=== PATIENT | male | born 1960 | race Caucasian/White ===

== ENCOUNTER 2017-10-22 19:52 | Emergency (ER) | payer OTHER ==
[~2017-10-22] VITALS: Ht 177.8 cm; Wt 89.2 kg
[2017-10-22] MEDS ORDERED: cloNIDine 0.1 mg tablet PO ONE ×2 (20:45)
[2017-10-22] MEDS ORDERED: LORazepam 1 MG tablet PO ONE (20:45)
[2017-10-22 20:54] LABS: BASOPHILS # (AUTO) 0.1 X10'3 (0-0.2); BASOPHILS % (AUTO) 0.7 % (0-1); EOSINOPHILS # (AUTO) 0.1 X10'3 (0-0.9); EOSINOPHILS % (AUTO) 1.2 % (0-6); HEMATOCRIT 44.4 % (42.0-52.0); HEMOGLOBIN 15.6 g/dl (14.0-17.9); LYMPHOCYTES % (AUTO) 21.4 % (21-51); MEAN CORPUSCULAR VOLUME 85.8 FL (78-98); MONOCYTES # (AUTO) 0.9 X10'3 (0-0.9); NEUTROPHILS # (AUTO) 6.4 X10'3 (1.8-7.7); NEUTROPHILS % (AUTO) 67.7 % (42-75); PLATELET COUNT 419 X10'3 (140-440); RED BLOOD COUNT 5.18 X10'6 (4.70-6.10); RED CELL DISTRIBUTION WIDTH 14.2 % (11.5-14.5); WHITE BLOOD COUNT 9.4 X10'3 (4.5-11.0)
[2017-10-22 20:56] VITALS: BP 208/164
[2017-10-22 21:08] LABS: INR 0.9 INR; PARTIAL THROMBOPLASTIN TIME 25 SECONDS (22-32); PROTHROMBIN TIME 9.5 SECONDS (9.0-12.0)
[2017-10-22 21:24] LABS: ALANINE AMINOTRANSFERASE 29 U/L (12-78); ALBUMIN 3.9 G/DL (3.4-5.0); ALKALINE PHOSPHATASE 105 IU/L (46-116); ANION GAP 11 (8-16); ASPARTATE AMINO TRANSFERASE 17 U/L (10-37); BILIRUBIN,TOTAL 0.2 MG/DL (0.1-1.0); BLOOD UREA NITROGEN 13 MG/DL (7-18); BUN/CREATININE RATIO 10.8 (5.4-32.0); CALCIUM 9.1 MG/DL (8.5-10.1); CHLORIDE 102 MMOL/L (99-107); GLUCOSE 122 MG/DL (70-104); POTASSIUM 3.9 MMOL/L (3.5-5.1); SODIUM 141 MMOL/L (135-145); TOTAL CARBON DIOXIDE 27.6 MMOL/L (24-32); TOTAL PROTEIN 7.9 G/DL (6.4-8.2); eGFR 63 ML/MIN
== END 2017-10-22 22:17 | disposition left against medical advice (07) ==
LOC: ER 19:53
DX: I10 Essential (primary) hypertension (principal); F17.200 Nicotine dependence, unspecified, uncomplicated; F12.10 Cannabis abuse, uncomplicated
CPT/HCPCS: 36415; 71045; 80053; 83880; 84484; 85025; 85610; 85730; 99285

== ENCOUNTER 2018-10-04 09:14 | Emergency (ER) | payer OTHER ==
[~2018-10-04] VITALS: Ht 180.3 cm; Wt 81.8 kg
[2018-10-04 09:59] LABS: BASOPHILS % (AUTO) 0.2 % (0-1); EOSINOPHILS # (AUTO) 0.2 X10'3 (0-0.9); EOSINOPHILS % (AUTO) 2.2 % (0-6); HEMOGLOBIN 11.8 g/dl (14.0-17.9); LYMPHOCYTES # (AUTO) 1.3 X10'3 (1.1-4.8); LYMPHOCYTES % (AUTO) 13.3 % (21-51); MEAN CORPUSCULAR HEMOGLOBIN 21.5 PG (27.0-31.0); MEAN CORPUSCULAR VOLUME 67.3 FL (78-98); MEAN PLATELET VOLUME 7.1 FL (7.4-10.4); MONOCYTES # (AUTO) 0.8 X10'3 (0-0.9); MONOCYTES % (AUTO) 8.4 % (2-12); NEUTROPHILS # (AUTO) 7.6 X10'3 (1.8-7.7); NEUTROPHILS % (AUTO) 75.9 % (42-75); PLATELET COUNT 499 X10'3 (140-440); RED BLOOD COUNT 5.49 X10'6 (4.70-6.10); RED CELL DISTRIBUTION WIDTH 22.5 % (11.5-14.5)
[2018-10-04 10:08] LABS: ALANINE AMINOTRANSFERASE 25 U/L (12-78); ALBUMIN 3.8 G/DL (3.4-5.0); ALBUMIN/GLOBULIN RATIO 0.9 (1.1-1.5); ALKALINE PHOSPHATASE 105 IU/L (46-116); ANION GAP 13 (8-16); ASPARTATE AMINO TRANSFERASE 17 U/L (10-37); BILIRUBIN,TOTAL 0.2 MG/DL (0.1-1.0); BLOOD UREA NITROGEN 14 MG/DL (7-18); CALCIUM 9.5 MG/DL (8.5-10.1); CHLORIDE 97 MMOL/L (99-107); CREATININE 1.56 MG/DL (0.60-1.10); GLUCOSE 114 MG/DL (70-104); POTASSIUM 3.1 MMOL/L (3.5-5.1); SODIUM 137 MMOL/L (135-145); TOTAL CARBON DIOXIDE 27.2 MMOL/L (24-32); eGFR 46 ML/MIN
[2018-10-04 10:12] LABS: TROPONIN I 0.05 NG/ML (0.0-0.05)
[2018-10-04] MEDS ORDERED: NORMAL SALINE IV PRN (10:25)
[2018-10-04] MEDS ORDERED: LABETALOL IV PRN (10:25)
[2018-10-04 10:39] LABS: ANISOCYTOSIS 3+; ELLIPTOCYTES 1+; HYPOCHROMASIA 1+; MICROCYTOSIS 2+; PLATELET ESTIMATE NORMAL
[2018-10-04 10:40] LABS: POLYCHROMASIA FEW; SCHISTOCYTES FEW
[2018-10-04 10:54] VITALS: BP 212/141
[2018-10-04 11:01] LABS: PARTIAL THROMBOPLASTIN TIME 28 SECONDS (22-32); PROTHROMBIN TIME 9.9 SECONDS (9.0-12.0)
== END 2018-10-04 20:43 | disposition short-term general hospital (02) ==
LOC: ER 09:15
DX: I62.9 Nontraumatic intracranial hemorrhage, unspecified (principal); I16.9 Hypertensive crisis, unspecified; R20.0 Anesthesia of skin; F17.200 Nicotine dependence, unspecified, uncomplicated; F12.90 Cannabis use, unspecified, uncomplicated
CPT/HCPCS: 36415; 70450; 71045; 80053; 84484; 85025; 85610; 85730; 93005; 96365; 99285; J7030; 99284; J3490

== ENCOUNTER 2020-09-15 19:58 | Emergency (ER) | payer MEDICAID ==
[~2020-09-15] VITALS: Ht 180.3 cm; Wt 84.5 kg
[2020-09-15 20:39] LABS: BASOPHILS # (AUTO) 0.1 X10'3 (0-0.2); BASOPHILS % (AUTO) 0.6 % (0-1); EOSINOPHILS % (AUTO) 0.2 % (0-6); HEMATOCRIT 52.2 % (42.0-52.0); HEMOGLOBIN 17.7 g/dl (14.0-17.9); LYMPHOCYTES % (AUTO) 13.7 % (21-51); MEAN CORPUSCULAR HEMOGLOBIN 30.7 PG (27.0-31.0); MEAN CORPUSCULAR HGB CONC 33.9 g/dL (33.0-36.5); MEAN CORPUSCULAR VOLUME 90.6 FL (78-98); MEAN PLATELET VOLUME 7.3 FL (7.4-10.4); MONOCYTES # (AUTO) 0.9 X10'3 (0-0.9); MONOCYTES % (AUTO) 6.1 % (2-12); NEUTROPHILS # (AUTO) 11.7 X10'3 (1.8-7.7); NEUTROPHILS % (AUTO) 79.4 % (42-75); PLATELET COUNT 467 X10'3 (140-440); RED BLOOD COUNT 5.76 X10'6 (4.70-6.10); RED CELL DISTRIBUTION WIDTH 13.6 % (11.5-14.5); WHITE BLOOD COUNT 14.7 X10'3 (4.5-11.0)
[2020-09-15] MEDS ORDERED: proCHLORperazine 10 MG/2 ml inj IV ONE (20:50)
[2020-09-15] MEDS ORDERED: normal saline 1000ML IV soln IVB ONE (20:50)
[2020-09-15 20:51] LABS: ALANINE AMINOTRANSFERASE 28 U/L (12-78); ALBUMIN 4.1 G/DL (3.4-5.0); ALKALINE PHOSPHATASE 114 IU/L (46-116); ANION GAP 12 (8-16); ASPARTATE AMINO TRANSFERASE 14 U/L (10-37); BILIRUBIN,TOTAL 0.7 MG/DL (0.1-1.0); BLOOD UREA NITROGEN 25 MG/DL (7-18); BUN/CREATININE RATIO 18.4 (5.4-32.0); CALCIUM 9.6 MG/DL (8.5-10.1); CHLORIDE 99 MMOL/L (99-107); CREATININE 1.36 MG/DL (0.60-1.10); GLUCOSE 139 MG/DL (70-104); LIPASE 59 U/L (73-393); SODIUM 137 MMOL/L (135-145); TOTAL CARBON DIOXIDE 26.5 MMOL/L (24-32); TOTAL PROTEIN 8.3 G/DL (6.4-8.2); eGFR 54 ML/MIN
--- NOTE | 2020-09-15 20:55 | NUR ---
CRISPIN LOPEZ AT BEDSIDE.
[2020-09-15 21:11] LABS: CLARITY,URINE CLEAR (Clear); COLOR,URINE YELLOW (Yellow); GLUCOSE, URINE NEGATIVE (Neg); KETONES,URINE 15 mg/dl (Neg); LEUKOCYTE ESTERASE ,URINE NEGATIVE (Neg); NITRITES, URINE NEGATIVE (Neg); OCCULT BLOOD,URINE TRACE-INTACT (Neg); PROTEIN,URINE NEGATIVE (Neg); UROBILINOGEN,URINE 0.2 E.U/dL (0.2-1.0)
[2020-09-15 21:15] LABS: UA COLLECTION TYPE CLN CATCH MIDSTREAM
[2020-09-15 21:17] LABS: BACTERIA,URINE FEW /HPF (Neg); RBC,URINE 0-2 /HPF (0-2); SQUAMOUS EPITHELIAL CELL,UR FEW /LPF (FEW); WBC,URINE NONE SEEN /HPF (0-4)
--- NOTE | 2020-09-15 22:17 | NUR ---
PO CHALLENGE COMPLETED SUCCESFULLY. PATIENT TOLERATED 2 CUPS OF WATER, CLEAR LIQUID AND APPLE SAUCE. PATIENT DENIES NAUSEA AND STATES HE IS HUNGRY.
[2020-09-15] MEDS ORDERED: PROC25SU31 RC (22:42)
[2020-09-15 22:45] VITALS: BP 144/86
== END 2020-09-15 23:06 | disposition home or self-care (01) ==
LOC: ER 19:58
DX: R11.10 Vomiting, unspecified (principal); I10 Essential (primary) hypertension; F12.90 Cannabis use, unspecified, uncomplicated; Z86.73 Personal history of transient ischemic attack (TIA), and cerebral infarction without residual deficits; Z79.899 Other long term (current) drug therapy
CPT/HCPCS: 36415; 80053; 81001; 83690; 85025; 93005; 96361; 96374; 99284; J0780; J7030

== ENCOUNTER 2021-12-19 09:02 | Inpatient (IN) | payer MEDICAID ==
[~2021-12-19] VITALS: Ht 180.3 cm; Wt 91.0 kg
[2021-12-19 09:59] LABS: APTT 27 SECONDS (22-32)
[2021-12-19 10:02] LABS: ALANINE AMINOTRANSFERASE 36 U/L (12-78); ALBUMIN 3.8 G/DL (3.4-5.0); ALKALINE PHOSPHATASE 91 IU/L (46-116); ANION GAP 10 (8-16); ASPARTATE AMINO TRANSFERASE 18 U/L (10-37); BILIRUBIN,TOTAL 0.3 MG/DL (0.1-1.0); BLOOD UREA NITROGEN 20 MG/DL (7-18); BUN/CREATININE RATIO 12.7 (5.4-32.0); CALCIUM 9.4 MG/DL (8.5-10.1); CHLORIDE 103 MMOL/L (99-107); CREATININE 1.58 MG/DL (0.60-1.10); GLUCOSE 138 MG/DL (70-104); POTASSIUM 4.2 MMOL/L (3.5-5.1); SODIUM 140 MMOL/L (135-145); TOTAL CARBON DIOXIDE 26.9 MMOL/L (24-32); TOTAL PROTEIN 7.7 G/DL (6.4-8.2); eGFR 45 ML/MIN
[2021-12-19 10:03] LABS: BASOPHILS # (AUTO) 0.1 X10'3 (0-0.2); EOSINOPHILS # (AUTO) 0.1 X10'3 (0-0.9); EOSINOPHILS % (AUTO) 1.7 % (0-6); HEMATOCRIT 42.1 % (42.0-52.0); LYMPHOCYTES # (AUTO) 1.6 X10'3 (1.1-4.8); LYMPHOCYTES % (AUTO) 20.7 % (21-51); MEAN CORPUSCULAR HEMOGLOBIN 28.5 PG (27.0-31.0); MEAN CORPUSCULAR HGB CONC 33.2 g/dL (33.0-36.5); MEAN CORPUSCULAR VOLUME 85.8 FL (78-98); MEAN PLATELET VOLUME 7.5 FL (7.4-10.4); MONOCYTES # (AUTO) 0.9 X10'3 (0-0.9); MONOCYTES % (AUTO) 12.1 % (2-12); NEUTROPHILS # (AUTO) 4.9 X10'3 (1.8-7.7); NEUTROPHILS % (AUTO) 64.5 % (42-75); PLATELET COUNT 443 X10'3 (140-440); RED CELL DISTRIBUTION WIDTH 15.1 % (11.5-14.5); WHITE BLOOD COUNT 7.7 X10'3 (4.5-11.0)
--- NOTE | 2021-12-19 10:21 | NUR ---
Pt resting comfortably, no apparent distress or needs at this time. Everything completed. Pt to be admitted.
[2021-12-19] MEDS ORDERED: magnesium 2GM in 50ml NS 50 ML IV PRN (10:35)
[2021-12-19] MEDS ORDERED: POTASSIUM BICARB 20meq eff tab 20 MEQ TABLET.EFF PO PRN ×2 (10:35)
[2021-12-19] MEDS ORDERED: potassium CL 10mEq/100ml bag 100 ML IV PRN (10:35)
[2021-12-19] MEDS ORDERED: ondansetron/PF 4mg/2ml inj IV PRN (10:35)
[2021-12-19] MEDS ORDERED: magnesium Cl slow-release 64mg tablet PO PRN (10:35)
[2021-12-19] MEDS ORDERED: magnesium 4gm in 100ml NS 100 ML IV PRN (10:35)
[2021-12-19] MEDS ORDERED: mag hydrox/Alum hydrox/simeth 30ml oral suspension PO PRN (10:35)
[2021-12-19] MEDS ORDERED: acetaminophen 325mg tablet PO PRN (10:35)
[2021-12-19] MEDS ORDERED: magnesium hydroxide 30ml (MOM) UD suspension PO PRN (10:35)
[2021-12-19] MEDS: normal saline 1000ml 1,000 ML IV SCH (10:55)
[2021-12-19 10:57] LABS: CHOL/HDL RATIO 3.9 (0.00-4.99); CHOLESTEROL 182 MG/DL (0-200); HDL CHOLESTEROL 47 MG/DL (35-60); MAGNESIUM 2.3 MG/DL (1.5-2.4); TRIGLYCERIDES 177 MG/DL (20-135)
[2021-12-19 11:09] LABS: LDL CHOLESTEROL 102 MG/DL (50-100)
--- NOTE | 2021-12-19 12:15 | NUR ---
Patient arrived to floor. Alert, oriented and appropriate with slight slur. Baseline weakness on right side.
[2021-12-19 13:34] VITALS: BP 128/87
[2021-12-19] MEDS ORDERED: LISI20TA28 PO (15:39)
[2021-12-19] MEDS ORDERED: AMLO10TA13 PO (15:39)
[2021-12-19] MEDS ORDERED: ATOR10TA70 PO (15:39)
[2021-12-19] MEDS ORDERED: IPRA4AER INH (15:39)
[2021-12-19] MEDS ORDERED: FLO0.4C PO (15:39)
[2021-12-19 18:00] VITALS: BP 122/87
--- NOTE | 2021-12-19 18:39 | NUR ---
Report given to Bruno POP, pt eating dinner in bed, no current complaints. Slurring seems somewhat better than earlier today. Plavix started, home statin order continued.
[2021-12-19] MEDS: clopidogrel 75mg tablet PO SCH (19:14)
[2021-12-19] MEDS: heparin, porcine 5000 units/ml vial SQ SCH (19:16)
[2021-12-19] MEDS ORDERED: SILD20TA2 PO (19:32)
[2021-12-19] MEDS ORDERED: ASPI-1265 PO (19:39)
[2021-12-19] MEDS: docusate sod 100mg capsule PO SCH (20:00)
[2021-12-19] MEDS ORDERED: K and/or MAG REPLACEMENT MC SCH (20:00)
[2021-12-19] MEDS: ipratropium/albuterol 3ml nebule IH SCH (20:14)
[2021-12-19 22:00] VITALS: BP 134/87
[2021-12-20] MEDS: normal saline 1000ml 1,000 ML IV SCH (01:45)
[2021-12-20 02:00] VITALS: BP 118/71
[2021-12-20] MEDS: ipratropium/albuterol 3ml nebule IH SCH ×2 (02:43→09:06)
[2021-12-20 06:00] VITALS: BP 117/70
--- NOTE | 2021-12-20 06:30 | NUR ---
Problems reprioritized. Patient report given, questions answered & plan of care reviewed with asad Jeong.
[2021-12-20 06:54] LABS: HEMATOCRIT 39.4 % (42.0-52.0); HEMOGLOBIN 13.2 g/dl (14.0-17.9); MEAN CORPUSCULAR HEMOGLOBIN 28.8 PG (27.0-31.0); MEAN CORPUSCULAR HGB CONC 33.6 g/dL (33.0-36.5); MEAN CORPUSCULAR VOLUME 85.7 FL (78-98); PLATELET COUNT 409 X10'3 (140-440); RED BLOOD COUNT 4.59 X10'6 (4.70-6.10); RED CELL DISTRIBUTION WIDTH 14.7 % (11.5-14.5)
[2021-12-20 06:55] LABS: BASOPHILS # (AUTO) 0.1 X10'3 (0-0.2); BASOPHILS % (AUTO) 0.8 % (0-1); EOSINOPHILS # (AUTO) 0.2 X10'3 (0-0.9); EOSINOPHILS % (AUTO) 2.5 % (0-6); LYMPHOCYTES # (AUTO) 2.3 X10'3 (1.1-4.8); LYMPHOCYTES % (AUTO) 28.2 % (21-51); MEAN PLATELET VOLUME 7.4 FL (7.4-10.4); MONOCYTES # (AUTO) 0.9 X10'3 (0-0.9); MONOCYTES % (AUTO) 10.6 % (2-12); NEUTROPHILS # (AUTO) 4.7 X10'3 (1.8-7.7); NEUTROPHILS % (AUTO) 57.9 % (42-75)
[2021-12-20 07:22] LABS: ALBUMIN 3.1 G/DL (3.4-5.0); ANION GAP 8 (8-16); BLOOD UREA NITROGEN 14 MG/DL (7-18); BUN/CREATININE RATIO 10.8 (5.4-32.0); CALCIUM 8.4 MG/DL (8.5-10.1); CHLORIDE 105 MMOL/L (99-107); GLUCOSE 87 MG/DL (70-104); MAGNESIUM 2.2 MG/DL (1.5-2.4); POTASSIUM 4.7 MMOL/L (3.5-5.1); SODIUM 138 MMOL/L (135-145); TOTAL CARBON DIOXIDE 25.4 MMOL/L (24-32); eGFR 57 ML/MIN
[2021-12-20] MEDS: docusate sod 100mg capsule PO SCH (07:41)
[2021-12-20] MEDS: clopidogrel 75mg tablet PO SCH (07:41)
[2021-12-20] MEDS: heparin, porcine 5000 units/ml vial SQ SCH (07:43)
[2021-12-20] MEDS ORDERED: atorvastatin 10mg tablet PO SCH (08:00)
[2021-12-20] MEDS ORDERED: tamsulosin 0.4mg capsule PO SCH (08:00)
[2021-12-20] MEDS ORDERED: lisinopril 20mg tablet PO SCH (08:00)
[2021-12-20] MEDS ORDERED: aspirin 81mg, enteric-coated 1 TAB TABLET.DR PO SCH (08:00)
[2021-12-20 10:00] VITALS: BP 128/86
== END 2021-12-20 11:30 | disposition home or self-care (01) | DRG 47 ==
LOC: ER 09:02 → ED HOLD 10:34 → ORTHO 4S 12:12
PROVIDERS: ADMIT Family Medicine; ATTEND Family Medicine
DX: G45.9 Transient cerebral ischemic attack, unspecified (principal); N17.0 Acute kidney failure with tubular necrosis; F12.90 Cannabis use, unspecified, uncomplicated; F17.210 Nicotine dependence, cigarettes, uncomplicated; I10 Essential (primary) hypertension; I69.351 Hemiplegia and hemiparesis following cerebral infarction affecting right dominant side; Z71.6 Tobacco abuse counseling
CPT/HCPCS: 36415; 70450; 70544; 70551; 71045; 80048; 80053; 80061; 82948; 83735; 85025; 85610; 85730; 87081; 92508; 92616; 93306; 93880; 94640; 94760; 97116; 97161; 99285; G0378; J1644; J7030

== ENCOUNTER 2023-07-26 08:12 | Emergency (ER) | payer MEDICAID ==
[~2023-07-26] VITALS: Ht 180.3 cm; Wt 87.7 kg
[~2023-07-26 08:12] MED LIST: AMLO10TA13 PO; ASPI-1265 PO; ATOR10TA70 PO; FLO0.4C PO; IPRA4AER INH; LISI20TA28 PO; SILD20TA2 PO
[2023-07-26 08:14] VITALS: TEMP 98.1
[2023-07-26 09:40] VITALS: PULSE 94
[2023-07-26 09:56] LABS: BILIRUBIN,URINE NEGATIVE (Neg); CLARITY,URINE CLEAR (Clear); COLOR,URINE YELLOW (Yellow); GLUCOSE, URINE 100 mg/dl (Neg); KETONES,URINE NEGATIVE (Neg); LEUKOCYTE ESTERASE ,URINE NEGATIVE (Neg); NITRITES, URINE NEGATIVE (Neg); OCCULT BLOOD,URINE NEGATIVE (Neg); PROTEIN,URINE NEGATIVE (Neg); UROBILINOGEN,URINE 0.2 E.U/dL (0.2-1.0)
[2023-07-26 09:58] LABS: BASOPHILS # (AUTO) 0.1 X10'3 (0-0.2); BASOPHILS % (AUTO) 0.5 % (0-1); EOSINOPHILS # (AUTO) 0.1 X10'3 (0-0.9); EOSINOPHILS % (AUTO) 0.5 % (0-6); HEMATOCRIT 41.6 % (42.0-52.0); HEMOGLOBIN 13.6 g/dl (14.0-17.9); LYMPHOCYTES # (AUTO) 1.1 X10'3 (1.1-4.8); LYMPHOCYTES % (AUTO) 6.9 % (21-51); MEAN CORPUSCULAR HEMOGLOBIN 29.3 PG (27.0-31.0); MEAN CORPUSCULAR HGB CONC 32.8 g/dL (33.0-36.5); MEAN CORPUSCULAR VOLUME 89.5 FL (78-98); MEAN PLATELET VOLUME 7.2 FL (7.4-10.4); MONOCYTES # (AUTO) 1.1 X10'3 (0-0.9); MONOCYTES % (AUTO) 7.2 % (2-12); NEUTROPHILS # (AUTO) 12.9 X10'3 (1.8-7.7); NEUTROPHILS % (AUTO) 84.9 % (42-75); PLATELET COUNT 411 X10'3 (140-440); RED BLOOD COUNT 4.65 X10'6 (4.70-6.10); RED CELL DISTRIBUTION WIDTH 16.2 % (11.5-14.5); WHITE BLOOD COUNT 15.1 X10'3 (4.5-11.0)
[2023-07-26 10:04] LABS: UA COLLECTION TYPE FOLEY CATH
[2023-07-26 10:16] LABS: ALANINE AMINOTRANSFERASE 26 U/L (12-78); ALBUMIN 3.5 G/DL (3.4-5.0); ALBUMIN/GLOBULIN RATIO 0.9 (1.1-1.5); ALKALINE PHOSPHATASE 100 IU/L (46-116); ANION GAP 10 (8-16); ASPARTATE AMINO TRANSFERASE 15 U/L (10-37); BILIRUBIN,TOTAL 0.2 MG/DL (0.1-1.0); BLOOD UREA NITROGEN 20 MG/DL (7-18); BUN/CREATININE RATIO 14.9 (10.0-20.0); CALCIUM 9.1 MG/DL (8.5-10.1); CHLORIDE 102 MMOL/L (99-107); CREATININE 1.34 MG/DL (0.60-1.10); GLUCOSE 140 MG/DL (70-104); LIPASE 44 U/L (16-77); POTASSIUM 4.5 MMOL/L (3.5-5.1); SODIUM 135 MMOL/L (135-145); TOTAL PROTEIN 7.2 G/DL (6.4-8.2); eCRCL 62 ML/MIN; eGFR 54 ML/MIN
[2023-07-26 11:38] VITALS: BP 137/84; RESP 14; O2SAT 99
== END 2023-07-26 12:03 | disposition home or self-care (01) ==
LOC: ER 08:13
DX: R33.9 Retention of urine, unspecified (principal); I10 Essential (primary) hypertension; F12.10 Cannabis abuse, uncomplicated; Z79.899 Other long term (current) drug therapy
CPT/HCPCS: 36415; 51702; 80053; 81003; 83690; 85025; 99284; A4314; A4358; A5200

== ENCOUNTER 2023-07-29 18:56 | Emergency (ER) | payer MEDICAID ==
[~2023-07-29] VITALS: Ht 180.3 cm; Wt 85.0 kg
[2023-07-29 19:23] VITALS: TEMP 98.1
[2023-07-29 21:43] LABS: BILIRUBIN,URINE NEGATIVE (Neg); CLARITY,URINE SLIGHTLY CLOUDY (Clear); COLOR,URINE YELLOW (Yellow); GLUCOSE, URINE NEGATIVE (Neg); KETONES,URINE NEGATIVE (Neg); LEUKOCYTE ESTERASE ,URINE NEGATIVE (Neg); NITRITES, URINE NEGATIVE (Neg); OCCULT BLOOD,URINE LARGE (Neg); PH,URINE 5.5 (4.8-8.0); PROTEIN,URINE 30 mg/dl (Neg); UROBILINOGEN,URINE 0.2 E.U/dL (0.2-1.0)
[2023-07-29 21:50] LABS: UA COLLECTION TYPE FOLEY CATH
[2023-07-29 21:52] LABS: BACTERIA,URINE 2+ /HPF (Neg); RBC,URINE TNTC /HPF (0-2); SQUAMOUS EPITHELIAL CELL,UR FEW /LPF (FEW); TRANSITIONAL EPI CELLS,URINE FEW /HPF
[2023-07-29 21:55] LABS: MUCUS STRANDS FEW /LPF (Neg)
[2023-07-29] MEDS ORDERED: cephalexin 500mg capsule PO STA (22:03)
[2023-07-29] MEDS ORDERED: CEPH-585 PO (22:36)
[2023-07-29 22:43] VITALS: BP 145/88; PULSE 88; RESP 17; O2SAT 99
== END 2023-07-29 22:44 | disposition home or self-care (01) ==
LOC: ER 18:56
DX: T85.9XXA Unspecified complication of internal prosthetic device, implant and graft, initial encounter (principal); I10 Essential (primary) hypertension; F12.10 Cannabis abuse, uncomplicated; Z79.899 Other long term (current) drug therapy
CPT/HCPCS: 81001; 87088; 99283

== ENCOUNTER 2023-09-09 14:00 | Emergency (ER) | payer MEDICAID ==
[~2023-09-09] VITALS: Ht 180.3 cm; Wt 89.7 kg
[2023-09-09 14:22] VITALS: BP 125/99; PULSE 84; RESP 16; TEMP 98; O2SAT 98
[2023-09-09 14:55] LABS: BASOPHILS # (AUTO) 0.1 X10'3 (0-0.2); BASOPHILS % (AUTO) 1.1 % (0-1); EOSINOPHILS # (AUTO) 0.2 X10'3 (0-0.9); EOSINOPHILS % (AUTO) 1.6 % (0-6); HEMATOCRIT 40.9 % (42.0-52.0); HEMOGLOBIN 13.6 g/dl (14.0-17.9); LYMPHOCYTES # (AUTO) 2.1 X10'3 (1.1-4.8); LYMPHOCYTES % (AUTO) 22.3 % (21-51); MEAN CORPUSCULAR HEMOGLOBIN 28.8 PG (27.0-31.0); MEAN CORPUSCULAR HGB CONC 33.1 g/dL (33.0-36.5); MEAN CORPUSCULAR VOLUME 86.8 FL (78-98); MEAN PLATELET VOLUME 6.5 FL (7.4-10.4); PLATELET COUNT 572 X10'3 (140-440); RED BLOOD COUNT 4.72 X10'6 (4.70-6.10); RED CELL DISTRIBUTION WIDTH 15.1 % (11.5-14.5); WHITE BLOOD COUNT 9.5 X10'3 (4.5-11.0)
[2023-09-09 15:04] LABS: D-DIMER 0.88 MG/L FEU (0-0.50)
[2023-09-09 15:13] LABS: ALANINE AMINOTRANSFERASE 24 U/L (12-78); ALBUMIN 3.3 G/DL (3.4-5.0); ALBUMIN/GLOBULIN RATIO 0.7 (1.1-1.5); ALKALINE PHOSPHATASE 102 IU/L (46-116); ANION GAP 4 (8-16); ASPARTATE AMINO TRANSFERASE 14 U/L (10-37); BILIRUBIN,TOTAL 0.3 MG/DL (0.1-1.0); BLOOD UREA NITROGEN 12 MG/DL (7-18); BUN/CREATININE RATIO 10.4 (10.0-20.0); CALCIUM 9.2 MG/DL (8.5-10.1); CHLORIDE 103 MMOL/L (99-107); CREATININE 1.15 MG/DL (0.60-1.10); GLUCOSE 117 MG/DL (70-104); POTASSIUM 4.1 MMOL/L (3.5-5.1); SODIUM 139 MMOL/L (135-145); TOTAL CARBON DIOXIDE 31.9 MMOL/L (24-32); TOTAL PROTEIN 7.9 G/DL (6.4-8.2); eCRCL 72 ML/MIN; eGFR 65 ML/MIN
[2023-09-09 15:20] LABS: PRO BRAIN NATRIURETIC PEPTIDE 140 PG/ML (0-125)
== END 2023-09-09 16:57 | disposition left against medical advice (07) ==
LOC: ER 14:00
DX: M79.89 Other specified soft tissue disorders (principal); M79.604 Pain in right leg
CPT/HCPCS: 36415; 71045; 80053; 82948; 83880; 84484; 85025; 85379; 99284

== ENCOUNTER 2023-11-04 22:59 | Inpatient (IN) | payer MEDICAID ==
[~2023-11-04] VITALS: Ht 182.9 cm; Wt 83.9 kg
[2023-11-05] MEDS: ondansetron/PF 4mg/2ml inj IV ONE (01:51)
[2023-11-05 02:02] LABS: BASOPHILS # (AUTO) 0.1 X10'3 (0-0.2); BASOPHILS % (AUTO) 0.5 % (0-1); EOSINOPHILS % (AUTO) 0.1 % (0-6); HEMATOCRIT 38.9 % (42.0-52.0); LYMPHOCYTES # (AUTO) 0.5 X10'3 (1.1-4.8); LYMPHOCYTES % (AUTO) 2.1 % (21-51); MEAN CORPUSCULAR HEMOGLOBIN 27.8 PG (27.0-31.0); MEAN CORPUSCULAR HGB CONC 33.3 g/dL (33.0-36.5); MEAN CORPUSCULAR VOLUME 83.4 FL (78-98); MEAN PLATELET VOLUME 7.5 FL (7.4-10.4); MONOCYTES # (AUTO) 1.4 X10'3 (0-0.9); MONOCYTES % (AUTO) 5.8 % (2-12); NEUTROPHILS # (AUTO) 22.2 X10'3 (1.8-7.7); NEUTROPHILS % (AUTO) 91.5 % (42-75); PLATELET COUNT 402 X10'3 (140-440); RED BLOOD COUNT 4.66 X10'6 (4.70-6.10); WHITE BLOOD COUNT 24.2 X10'3 (4.5-11.0)
[2023-11-05] MEDS: vancomycin/NS 1 GM ADD-VANTAGE 250 ML IV ONE (02:02)
[2023-11-05] MEDS: normal saline 1000ML IV soln IVB ONE ×2 (02:02→03:06)
[2023-11-05] MEDS: CefTRIAXone/D5W-Rocephin 1gm 50 ML IV ONE ×2 (02:02→04:33)
[2023-11-05 02:06] LABS: AMMONIA < 10 UMOL/L (11-32); PROTHROMBIN TIME 10.7 SECONDS (9.0-12.0)
[2023-11-05] MEDS: acetaminophen 325mg tablet PO ONE (02:09)
[2023-11-05 02:11] LABS: ALANINE AMINOTRANSFERASE 28 U/L (12-78); ALBUMIN 3.5 G/DL (3.4-5.0); ALBUMIN/GLOBULIN RATIO 0.9 (1.1-1.5); ALKALINE PHOSPHATASE 106 IU/L (46-116); ANION GAP 14 (8-16); ASPARTATE AMINO TRANSFERASE 19 U/L (10-37); BILIRUBIN,TOTAL 0.4 MG/DL (0.1-1.0); BLOOD UREA NITROGEN 26 MG/DL (7-18); BUN/CREATININE RATIO 15.1 (10.0-20.0); CHLORIDE 103 MMOL/L (99-107); CREATININE 1.72 MG/DL (0.60-1.10); GLUCOSE 123 MG/DL (70-104); SODIUM 139 MMOL/L (135-145); TOTAL CARBON DIOXIDE 22.2 MMOL/L (24-32); TOTAL PROTEIN 7.2 G/DL (6.4-8.2); eCRCL 50 ML/MIN; eGFR 41 ML/MIN
[2023-11-05 02:13] LABS: LIPASE 22 U/L (16-77)
[2023-11-05 02:14] LABS: POTASSIUM 4.5 MMOL/L (3.5-5.1)
[2023-11-05 02:17] LABS: ETHANOL < 10 MG/DL (<10)
[2023-11-05] MEDS: LIDOcaine 1% W/epiNEPHrine 1:100,000 20ml vial SQ ONE (02:20)
[2023-11-05 02:21] LABS: LACTIC SEPSIS 2.1 MMOL/L (0.4-2.0)
[2023-11-05 02:53] LABS: BILIRUBIN,URINE NEGATIVE (Neg); CLARITY,URINE CLEAR (Clear); COLOR,URINE YELLOW (Yellow); GLUCOSE, URINE NEGATIVE (Neg); KETONES,URINE NEGATIVE (Neg); LEUKOCYTE ESTERASE ,URINE NEGATIVE (Neg); NITRITES, URINE NEGATIVE (Neg); OCCULT BLOOD,URINE NEGATIVE (Neg); PH,URINE 5.5 (4.8-8.0); PROTEIN,URINE NEGATIVE (Neg); UROBILINOGEN,URINE 0.2 E.U/dL (0.2-1.0)
[2023-11-05 02:57] LABS: UA COLLECTION TYPE FOLEY CATH
[2023-11-05 02:59] LABS: URINE AMPHETAMINE SCREEN POSITIVE (Neg); URINE BARBITUATE SCREEN NEGATIVE (Neg); URINE BENZODIAZEPINES SCREEN NEGATIVE (Neg); URINE CANNABINOID SCREEN NEGATIVE (Neg); URINE COCAINE SCREEN NEGATIVE (Neg); URINE METHADONE SCREEN NEGATIVE (Neg); URINE OPIATE SCREEN NEGATIVE (Neg); URINE PHENCYCLIDINE SCREEN NEGATIVE (Neg)
[2023-11-05] MEDS ORDERED: magnesium Cl slow-release 64mg tablet PO PRN (03:15)
[2023-11-05] MEDS ORDERED: acetaminophen 325mg tablet PO PRN (03:15)
[2023-11-05] MEDS ORDERED: potassium Cl 40MEQ/1/2NS 520ml 520 ML IV PRN (03:15)
[2023-11-05] MEDS ORDERED: magnesium hydroxide 30ml (MOM) UD suspension PO PRN (03:15)
[2023-11-05] MEDS ORDERED: potassium Cl 20 mEq SR tablet PO PRN ×2 (03:15)
[2023-11-05] MEDS ORDERED: HYDROcodone/acetaminophen 5mg/325mg tablet PO PRN (03:15)
[2023-11-05] MEDS: dexamethasone sod phosphate 10mg/ml inj IV STA (03:27)
[2023-11-05 03:45] LABS: MAGNESIUM 1.3 MG/DL (1.5-2.4); POTASSIUM 4.4 MMOL/L (3.5-5.1)
[2023-11-05] MEDS: ampicillin inj 2 GM in normal saline 100ml IV soln 100 ML IV SCH (04:11)
[2023-11-05] MEDS: dextrose 5%-1/2 normal saline 1,000 ML IV SCH (04:33)
[2023-11-05] MEDS: K and/or MAG REPLACEMENT MC SCH (08:00)
[2023-11-05] MEDS: docusate sod 100mg capsule PO SCH (08:57)
[2023-11-05] MEDS: enoxaparin 40mg/0.4ml syringe SUBCUT SCH (08:58)
[2023-11-05] MEDS: magnesium 2GM in 50ml NS 50 ML IV PRN (09:53)
[2023-11-05] MEDS ORDERED: OMEP20CA16 PO (10:17)
[2023-11-05] MEDS ORDERED: METF-1203 PO (10:17)
[2023-11-05 11:00] VITALS: BP 101/58; PULSE 89; RESP 20; TEMP 97.3; O2SAT 94
[2023-11-05 15:00] VITALS: BP 91/49; PULSE 92; RESP 16; TEMP 99.2; O2SAT 93
[2023-11-05 18:00] VITALS: BP 108/68; PULSE 93; RESP 18; TEMP 97.4; O2SAT 96
[2023-11-05 20:00] VITALS: RESP 18; O2SAT 96
[2023-11-05] MEDS: magnesium 4gm in 100ml NS 100 ML IV PRN (20:21)
[2023-11-06] VITALS (9 sets, daily range): BP systolic 98–153; BP diastolic 57–81; PULSE 76–104; RESP 16–20; TEMP 97.6–98.4; O2SAT 93–97
[2023-11-06 07:08] LABS: BASOPHILS % (AUTO) 0.2 % (0-1); EOSINOPHILS % (AUTO) 0 % (0-6); HEMATOCRIT 35.7 % (42.0-52.0); HEMOGLOBIN 11.9 g/dl (14.0-17.9); LYMPHOCYTES # (AUTO) 0.7 X10'3 (1.1-4.8); LYMPHOCYTES % (AUTO) 3.1 % (21-51); MEAN CORPUSCULAR HEMOGLOBIN 27.8 PG (27.0-31.0); MEAN CORPUSCULAR HGB CONC 33.3 g/dL (33.0-36.5); MEAN CORPUSCULAR VOLUME 83.5 FL (78-98); MEAN PLATELET VOLUME 7.5 FL (7.4-10.4); MONOCYTES # (AUTO) 1.6 X10'3 (0-0.9); MONOCYTES % (AUTO) 7.6 % (2-12); NEUTROPHILS # (AUTO) 18.8 X10'3 (1.8-7.7); NEUTROPHILS % (AUTO) 89.1 % (42-75); PLATELET COUNT 342 X10'3 (140-440); RED BLOOD COUNT 4.27 X10'6 (4.70-6.10); RED CELL DISTRIBUTION WIDTH 15.6 % (11.5-14.5); WHITE BLOOD COUNT 21.1 X10'3 (4.5-11.0)
[2023-11-06 07:44] LABS: ALANINE AMINOTRANSFERASE 24 U/L (12-78); ALBUMIN 2.7 G/DL (3.4-5.0); ALBUMIN/GLOBULIN RATIO 0.7 (1.1-1.5); ALKALINE PHOSPHATASE 74 IU/L (46-116); ANION GAP 13 (8-16); ASPARTATE AMINO TRANSFERASE 17 U/L (10-37); BILIRUBIN,TOTAL 0.2 MG/DL (0.1-1.0); BLOOD UREA NITROGEN 19 MG/DL (7-18); BUN/CREATININE RATIO 16.5 (10.0-20.0); CALCIUM 8.4 MG/DL (8.5-10.1); CHLORIDE 105 MMOL/L (99-107); CREATININE 1.15 MG/DL (0.60-1.10); GLUCOSE 138 MG/DL (70-104); MAGNESIUM 2.4 MG/DL (1.5-2.4); POTASSIUM 4.4 MMOL/L (3.5-5.1); SODIUM 139 MMOL/L (135-145); TOTAL CARBON DIOXIDE 21.1 MMOL/L (24-32); TOTAL PROTEIN 6.4 G/DL (6.4-8.2); eCRCL 74 ML/MIN; eGFR 65 ML/MIN
[2023-11-06] MEDS ORDERED: glucagon, human recombinant 1mg kit SUBCUT PRN (14:20)
[2023-11-06] MEDS ORDERED: insulin Lispro (HumaLOG) vial - multi-dose SQ SCH (14:20)
[2023-11-06] MEDS ORDERED: dextrose 50%-water 50ml dispensing syringe IV PRN ×2 (14:20)
[2023-11-06] MEDS ORDERED: DEXTROSE 15 GM of carb/4 tabs (each vial/BOTTLE has 4 tablets) PO PRN ×2 (14:20)
[2023-11-06] MEDS: MESSAGE TO PHARMACY PO ONE (15:07)
[2023-11-06] MEDS: tamsulosin 0.4mg capsule PO SCH (15:11)
[2023-11-06] MEDS: loperamide 2mg capsule PO PRN (15:12)
[2023-11-06] MEDS: atorvastatin 10mg tablet PO SCH (15:12)
[2023-11-06] MEDS: aspirin 81mg tab.chew PO SCH (15:12)
[2023-11-06] MEDS: normal saline 1000ml 1,000 ML IV SCH (15:14)
[2023-11-06] MEDS: ipratropium/albuterol 3ml nebule NEB SCH (17:00)
[2023-11-06] MEDS: ondansetron/PF 4mg/2ml inj IV PRN (20:27)
[2023-11-06] MEDS: insulin glargine (Lantus) pen - multi-dose SQ SCH (21:00)
[2023-11-06] MEDS: pantoprazole 40 MG vial IV SCH (22:00)
[2023-11-06] MEDS: pantoprazole 40 MG vial IV ONE (22:26)
[2023-11-06] MEDS: mag hydrox/Alum hydrox/simeth 30ml oral suspension PO PRN (22:26)
[2023-11-07 02:00] VITALS: BP 115/73; PULSE 78; RESP 17; TEMP 98.5; O2SAT 96
[2023-11-07 06:00] VITALS: BP 114/68; PULSE 78; RESP 16; TEMP 98.3; O2SAT 93
[2023-11-07] MEDS: ipratropium/albuterol 3ml nebule NEB SCH (07:00)
[2023-11-07 07:14] VITALS: PULSE 89; RESP 16; O2SAT 96
[2023-11-07 08:00] VITALS: RESP 15; O2SAT 93
[2023-11-07] MEDS ORDERED: pantoprazole 40mg Tablet.DR PO SCH (08:00)
[2023-11-07 08:50] LABS: BASOPHILS % (AUTO) 0.3 % (0-1); EOSINOPHILS % (AUTO) 0.1 % (0-6); HEMATOCRIT 37.4 % (42.0-52.0); HEMOGLOBIN 12.4 g/dl (14.0-17.9); LYMPHOCYTES # (AUTO) 1.2 X10'3 (1.1-4.8); LYMPHOCYTES % (AUTO) 8.9 % (21-51); MEAN CORPUSCULAR HEMOGLOBIN 27.8 PG (27.0-31.0); MEAN CORPUSCULAR HGB CONC 33.2 g/dL (33.0-36.5); MEAN CORPUSCULAR VOLUME 83.9 FL (78-98); MONOCYTES % (AUTO) 14.8 % (2-12); NEUTROPHILS # (AUTO) 10.3 X10'3 (1.8-7.7); NEUTROPHILS % (AUTO) 75.9 % (42-75); PLATELET COUNT 360 X10'3 (140-440); RED BLOOD COUNT 4.46 X10'6 (4.70-6.10); RED CELL DISTRIBUTION WIDTH 15.8 % (11.5-14.5); WHITE BLOOD COUNT 13.6 X10'3 (4.5-11.0)
[2023-11-07 09:04] LABS: ALANINE AMINOTRANSFERASE 22 U/L (12-78); ALBUMIN 2.6 G/DL (3.4-5.0); ALBUMIN/GLOBULIN RATIO 0.7 (1.1-1.5); ALKALINE PHOSPHATASE 81 IU/L (46-116); ANION GAP 9 (8-16); ASPARTATE AMINO TRANSFERASE 15 U/L (10-37); BILIRUBIN,TOTAL 0.3 MG/DL (0.1-1.0); BLOOD UREA NITROGEN 17 MG/DL (7-18); BUN/CREATININE RATIO 13.9 (10.0-20.0); CALCIUM 8.1 MG/DL (8.5-10.1); CHLORIDE 104 MMOL/L (99-107); CREATININE 1.22 MG/DL (0.60-1.10); GLUCOSE 92 MG/DL (70-104); MAGNESIUM 1.8 MG/DL (1.5-2.4); SODIUM 138 MMOL/L (135-145); TOTAL CARBON DIOXIDE 25.4 MMOL/L (24-32); TOTAL PROTEIN 6.4 G/DL (6.4-8.2); eCRCL 70 ML/MIN; eGFR 60 ML/MIN
[2023-11-07] MEDS: pantoprazole 40 MG vial IV SCH (09:09)
[2023-11-07] MEDS: lisinopril 20mg tablet PO SCH (09:13)
[2023-11-07] MEDS: amLODIPine 5mg tablet PO SCH (09:14)
[2023-11-07 11:00] VITALS: BP 115/75; PULSE 80; RESP 16; TEMP 98.4; O2SAT 94
== END 2023-11-07 14:52 | disposition home or self-care (01) | DRG 720 ==
LOC: ER 22:59 → ED HOLD 11-05 03:20 → PCU 3S 11-05 09:40
PROVIDERS: ADMIT Internal Medicine; ATTEND Internal Medicine
PROC: 00JU3ZZ Inspection of Spinal Canal, Percutaneous Approach (ICD-10-PCS; principal; 2023-11-05)
DX: A41.9 Sepsis, unspecified organism (principal); G93.41 Metabolic encephalopathy; N17.9 Acute kidney failure, unspecified; G03.9 Meningitis, unspecified; E78.5 Hyperlipidemia, unspecified; I10 Essential (primary) hypertension; G43.909 Migraine, unspecified, not intractable, without status migrainosus; F15.10 Other stimulant abuse, uncomplicated; Z87.891 Personal history of nicotine dependence
CPT/HCPCS: 36415; 62270; 70450; 71045; 80053; 80305; 80320; 81003; 82140; 82948; 83036; 83605; 83690; 83735; 84132; 84145; 84484; 85025; 85610; 87040; 87081; 93005; 93306; 94640; 94760; 99291; A4615; A6258; C1758; C9113; G0378; J0290; J0696; J1100; J1650; J1815; J2405; J3370; J3475; J3490; J7030

== ENCOUNTER 2024-05-07 14:47 | Emergency (ER) | payer MEDICAID ==
[~2024-05-07] VITALS: Ht 180.3 cm; Wt 85.2 kg
[~2024-05-07 14:47] MED LIST changes: +METF-1203 PO; +OMEP20CA16 PO; +SILD20TA14 PO; -SILD20TA2 PO
[2024-05-07 15:50] VITALS: BP 130/75; PULSE 89; RESP 16; TEMP 98.2; O2SAT 96
== END 2024-05-07 15:53 | disposition home or self-care (01) ==
LOC: ER 14:48
DX: Z02.89 Encounter for other administrative examinations (principal); F12.90 Cannabis use, unspecified, uncomplicated; I10 Essential (primary) hypertension; Z79.899 Other long term (current) drug therapy; Z86.73 Personal history of transient ischemic attack (TIA), and cerebral infarction without residual deficits
CPT/HCPCS: 99281

== ENCOUNTER 2024-05-08 13:09 | Emergency (ER) | payer MEDICAID ==
[~2024-05-08] VITALS: Ht 172.7 cm; Wt 87.6 kg
[2024-05-08 13:16] VITALS: BP 98/63; PULSE 100; RESP 18; TEMP 98; O2SAT 97
== END 2024-05-08 16:00 | disposition home or self-care (01) ==
LOC: ER 13:09
DX: Z02.89 Encounter for other administrative examinations (principal); I10 Essential (primary) hypertension; F12.90 Cannabis use, unspecified, uncomplicated; Z79.899 Other long term (current) drug therapy; Z79.82 Long term (current) use of aspirin; Z86.73 Personal history of transient ischemic attack (TIA), and cerebral infarction without residual deficits
CPT/HCPCS: 99281